=== PATIENT | female | born 1950 | race Caucasian/White ===

== ENCOUNTER 2017-10-21 08:53 | Day surgery (SDC) | payer MEDICARE, SELFPAY ==
[2017-10-16 13:06] VITALS: BMI 32.9
--- NOTE | 2017-10-16 14:29 | SUR.PREOP ---
DR COLIN LEGGETT-LEFT MESSAGE RE:NEED FOR CARDIAC CLEARANCE
[2017-10-21] VITALS (8 sets, daily range): BP systolic 118–171; BP diastolic 58–77; PULSE 64–70; RESP 16–18; TEMP 36.1; O2SAT 95–99
[2017-10-21 09:37] LABS: POC Glucose,Bedside 117 mg/dL
--- NOTE | 2017-10-21 10:49 | HMH.PROC ---
[facility] Procedure Note Procedure Note:: Colonoscopy Procedure Report: Colonoscopy with cold snare/snare cautery, submucosal injection (hetastarch), APC ablation and Endo Clip placement Endoscopist: Sterling Rodriguez II, MD Referring physician: Chanel mukherjee PA-C Date of Procedure: October 21, 2017 Equipment: Olympus 180 variable stiffness pediatric colonoscope Sedation: MAC sedation Indication: Mrs. Marcial is a 67-year-old female who is here for follow-up screening/surveillance colonoscopy. She did have a colonoscopy 11 years ago at [facility] (Dr. Vincent Gomez) which was normal. She reports no abdominal pain, weight loss, change in her bowel habits or rectal bleeding. She reports no family history of colon cancer. Procedure: Prior to the procedure, a history and physical exam was performed, and patient's medications and allergies were reviewed. The risks, benefits and alternatives of the sedation and procedure were discussed with the patient. All questions were answered and informed consent was obtained. The patient was brought to the procedure room. Patient identification and proposed procedure were verified by the physician and the nurse. The patient was placed in a left lateral decubitus position and the scope was passed under direct vision. Throughout the procedure, the patient's blood pressure, pulse, and oxygen saturations were monitored continuously. The colonoscopy was accomplished without difficulty. The patient tolerated the procedure well. Findings: On digital rectal examination there was normal rectal tone. There were no external hemorrhoids. The colonoscope was introduced through the anal canal to the rectum and advanced to the cecum. The ileocecal valve and appendiceal orifice were identified. The scope was advanced a short distance into the ileum which appeared grossly normal. The scope was then withdrawn into the colon. The cecum itself was normal. Within the proximal ascending colon was a laterally spreading granular elongated polyp along a haustral fold that extended approximately 30 mm in width and approximately 10 mm in depth. The base of this was injected with hetastarch submucosally to raise the polyp. The polyp was removed in piecemeal in 2 separate snares were utilized. Some of the polyp was so flat and was difficult to snare because of its very flat nature. This part was ablated using APC ablation. The remaining was removed via snare cautery. 2 endoclips were placed at the post polypectomy site. There was a second diminutive 5 mm polyp removed via cold snare polypectomy. The remaining ascending and transverse colon and mucosa were grossly normal. There were scattered diverticuli throughout the descending and sigmoid colon (LEFT colon). The rectum itself was normal. Upon retroflexion within the rectum there were grade 1 internal hemorrhoids. Impression: 1. Elongated laterally spreading granular ascending colon polyp (30 mm width/10 mm depth) status post mucosal resection with raising polyp/polypectomy 2. Diminutive ascending polyp 3. Left-sided diverticulosis 4. Grade 1 internal hemorrhoids Plan: I will follow up the polyp pathology and recommend repeat colonoscopy again in 1-2 years based upon the polyp histology. I would encourage fiber supplementation on a long-term daily maintenance basis.
--- NOTE | 2017-10-21 10:55 | P.PCN_ITS ---
[facility] Procedure Note Procedure Note:: Colonoscopy Procedure Report: Colonoscopy with cold snare/snare cautery, submucosal injection (hetastarch), APC ablation and Endo Clip placement Endoscopist: Sterling Rodriguez II, MD Referring physician: Chanel mukherjee PA-C Date of Procedure: October 21, 2017 Equipment: Olympus 180 variable stiffness pediatric colonoscope Sedation: MAC sedation Indication: Mrs. Marcial is a 67-year-old female who is here for follow-up screening /surveillance colonoscopy. She did have a colonoscopy 11 years ago at [facility] (Dr. Vincent Gomez) which was normal. She reports no abdominal pain, weight loss, change in her bowel habits or rectal bleeding. She reports no family history of colon cancer. Procedure: Prior to the procedure, a history and physical exam was performed, and patient' s medications and allergies were reviewed. The risks, benefits and alternatives of the sedation and procedure were discussed with the patient. All questions were answered and informed consent was obtained. The patient was brought to the procedure room. Patient identification and proposed procedure were verified by the physician and the nurse. The patient was placed in a left lateral decubitus position and the scope was passed under direct vision. Throughout the procedure, the patient's blood pressure, pulse, and oxygen saturations were monitored continuously. The colonoscopy was accomplished without difficulty. The patient tolerated the procedure well. Findings: On digital rectal examination there was normal rectal tone. There were no external hemorrhoids. The colonoscope was introduced through the anal canal to the rectum and advanced to the cecum. The ileocecal valve and appendiceal orifice were identified. The scope was advanced a short distance into the ileum which appeared grossly normal. The scope was then withdrawn into the colon. The cecum itself was normal. Within the proximal ascending colon was a laterally spreading granular elongated polyp along a haustral fold that extended approximately 30 mm in width and approximately 10 mm in depth. The base of this was injected with hetastarch submucosally to raise the polyp. The polyp was removed in piecemeal in 2 separate snares were utilized. Some of the polyp was so flat and was difficult to snare because of its very flat nature. This part was ablated using APC ablation. The remaining was removed via snare cautery. 2 endoclips were placed at the post polypectomy site. There was a second diminutive 5 mm polyp removed via cold snare polypectomy. The remaining ascending and transverse colon and mucosa were grossly normal. There were scattered diverticuli throughout the descending and sigmoid colon (LEFT colon). The rectum itself was normal. Upon retroflexion within the rectum there were grade 1 internal hemorrhoids. Impression: 1. Elongated laterally spreading granular ascending colon polyp (30 mm width/ 10 mm depth) status post mucosal resection with raising polyp/polypectomy 2. Diminutive ascending polyp 3. Left-sided diverticulosis 4. Grade 1 internal hemorrhoids Plan: I will follow up the polyp pathology and recommend repeat colonoscopy again in 1 -2 years based upon the polyp histology. I would encourage fiber supplementation on a long-term daily maintenance basis.
--- NOTE | 2017-10-21 11:27 | HMH.ANESCL ---
[facility] Anesthesia Checklist - Patient Identification Patient Identification: Arm Band - Structural Data Admitted From: Home Planned Operative Procedure/s: colonoscopy Consent for Planned Operative Procedure(s) Verified: Yes Verified Documents: Surgical Consent - NPO Status Verified Time NPO: 00:00 - Additional verifications Anesthesia Reactions: No - Airway Assessment C-Spine Mobility Assessed: Yes (MP2) TMJ Mobility Assessed: Yes Dentition: Good Dentition - Neurological Assessment Level of Consciousness: Awake, Alert - Anesthesia Plan Anesthesia Risk discussed: Yes Anesthesia Plan: Verified ASA Class: III Anesthesia Type: MAC [facility] Anesthesia HX I have reviewed the patient's past medical history: Yes Medical History: Reports:: Depression, Diabetes Mellitus Type 2 (NIDDM), Hyperlipidemia, Hypertension, Lung Disease (SLEEP APNEA USES CPAP, shortness of breath) Denies:: Diabetes Mellitus Type 1, Internal Pacemaker, Seizures Other Surgeries: No: Pacemaker Comment: thumb, uvula removed, bso
--- NOTE | 2017-10-21 12:39 | SUR.PHASEII ---
pt was noted in procedure to have a right bundle branch block. i called dr. brown office about this. pt shown to have RBBB in november of 2016 ekg, anes. made aware. dr. brown office faxed copy for our records
== END 2017-10-21 11:56 | disposition home or self-care (01) ==
LOC: OUTP 08:56
PROVIDERS: Family Provider Family Medicine; PCP Family Medicine; Visit Provider Internal Medicine Gastroenterology
PROC: 0DJD8ZZ Inspection of Lower Intestinal Tract, Via Natural or Artificial Opening Endoscopic (ICD-10-PCS; CPT 45378; principal; 2017-10-21 10:00)
DX: Z12.11 Encounter for screening for malignant neoplasm of colon (principal); K63.5 Polyp of colon; K57.32 Diverticulitis of large intestine without perforation or abscess without bleeding; K64.0 First degree hemorrhoids; Z79.899 Other long term (current) drug therapy
CPT/HCPCS: 45380; 45381; 45385; 82962; 88305; C2618

== ENCOUNTER 2021-01-08 12:40 | Emergency (ER) | payer MEDICARE, SELFPAY ==
--- NOTE | 2021-01-08 13:20 | HMH.EDUTC ---
[facility] Disposition Clinical Impression: Low back pain Qualifiers: Chronicity: acute Back pain laterality: right Sciatica presence: without sciatica Qualified Code(s): M54.5 - Low back pain Disposition: Home, Self-Care Condition on Discharge: Good Instructions: Low Back Pain, DI for Low Back Pain Additional Instructions: Go home and rest. It would be best if you rested tomorrow too. No heavy lifting. No twisting. Take the oral medications as directed. The muscle relaxer (cyclobenzaprine-flexeril) will make you drowsy, so don't drive or operate heavy machinery after taking it. Follow up with your regular doctor. GO TO THE ER FOR ANY WORSENING SYMPTOMS OR CONCERN, ESPECIALLY BOWEL OR BLADDER ISSUES, SADDLE AREA NUMBNESS, FEVER, ETC Prescriptions: Cyclobenzaprine HCl [Cyclobenzaprine 10mg Tab*] 10 mg PO BIDP PRN #30 tab PRN Reason: Muscle Spasm Transmission Status: Received by [facility] #[id number] predniSONE [Prednisone 20mg Tab] 20 mg PO BID 4 Days #8 tab Transmission Status: Received by [employer] #[id number] Referrals: Chanel Brandon [Primary Care Provider] - Time of Disposition: 13:29 Medical Decision Making - Medical Records Medical records reviewed: No: I reviewed the patient's medical records. - Nawaf Inquiry Pt receiving controlled substance: No Vital Signs: 01/08/21 13:23 01/08/21 13:31 Temperature 98.1 F 98.1 F Temperature Source Oral Oral Pulse Rate 70 Respiratory Rate 16 14 Blood Pressure 151/69 H 02 Sat by Pulse Oximetry 100 Oxygen Delivery Method Room Air - Lab Data Lab Results 01/08/21 13:13: Urine Color Yellow, Urine Appearance Clear, Urine pH 6.0, Ur Specific [place] 1.020, Urine Protein Trace, Urine Glucose (UA) Negative, Urine Ketones Negative, Urine Blood Negative, Urine Nitrate Negative, Urine Bilirubin Negative, Urine Urobilinogen 2, Ur Leukocyte Esterase Negative [facility] HPI - General Stated complaint: behind and hip pain, no accident Time Seen by Provider: 01/08/21 13:20 - History of Present Illness Provider Complaint: She c/o right lower back pain for the past 2 days. She denies any injury. She denies any urinary complaints. - Related Data Home Medications Medication Instructions Recorded Confirmed Fenofibrate Nanocrystallized 145 mg PO DAILY 10/16/17 11/02/19 [Tricor] Triamterene/Hydrochlorothiazid 1 each PO DAILY 10/16/17 11/02/19 [Triamterene-Hctz 75-50 mg Tab] Venlafaxine HCl [Effexor Xr] 150 mg PO DAILY 10/16/17 11/02/19 atenoloL [Atenolol 100mg Tab] 100 mg PO DAILY 10/16/17 11/02/19 estradioL [Estradiol] 0.5 mg PO DAILY 10/16/17 11/02/19 lisinopriL [Lisinopril 40mg Tablet] 40 mg PO DAILY 10/16/17 11/02/19 Lansoprazole [Prevacid] 15 mg PO DAILY 06/20/19 11/02/19 Montelukast Sodium [Singulair 10mg 10 mg PO HS 06/20/19 11/02/19 tablet] Previous Rx's Medication Instructions Recorded Phenazopyridine HCl [Pyridium 200 pow PO TID #6 tab 11/19/19 200mg Tablet] levoFLOXacin [Levaquin 500mg 500 mg PO DAILY #10 tab 11/19/19 tab] Cyclobenzaprine HCl 10 mg PO BIDP PRN #30 tab 01/08/21 [Cyclobenzaprine 10mg Tab*] predniSONE [Prednisone 20mg 20 mg PO BID 4 Days #8 tab 01/08/21 Tab] Allergies Allergy/AdvReac Type Severity Reaction Status Date / Time Penicillins [PENICILLINS] Allergy Intermediate I-HIVES Verified 11/02/19 09:53 [facility] History - Hepatitis A Screen Attestation statement:: This patient has been screened for Hepatitis A risk factors. I have reviewed the patient's past medical history: Yes Medical History: Reports:: Anxiety, Depression, Diabetes Mellitus Type 2, Hyperlipidemia, Hypertension, Lung Disease (sleep apnea) Denies:: Cancer, Diabetes Mellitus Type 1, Internal Pacemaker, MRSA, Seizures Comment: obesity, BRONSON uses CPAP Other Surgeries: No: Pacemaker Amputation: No Comment: Uvulectomy, L ovarian cystectomy/salpingectomy, L thumb, B CTR - Social History Smok
[2021-01-08 13:23] VITALS: RESP 16; TEMP 36.7; O2SAT 100; BMI 33.1
[2021-01-08 13:31] VITALS: BP 151/69; PULSE 70; RESP 14; TEMP 36.7; O2SAT 100
[2021-01-08 15:39] LABS: Apearance,Urine Clear (Clear); Color,Urine Yellow (Yellow)
[2021-01-08 15:40] LABS: Bilirubin,Urine Negative (Negative); Blood, Urine Negative (Negative); Glucose,Urine (UA) Negative (Negative); Ketones,Urine Negative (Negative); Protein,Urine Trace (Negative); UTC Leukocyte Esterase,Urine Negative (Negative); UTC Nitrate,Urine Negative (Negative); Urobilinogen,Urine 2 EU/dl (0.2)
== END 2021-01-08 13:32 | disposition home or self-care (01) ==
PROVIDERS: Emergency Provider Nurse Practitioner Family; PCP Physician Assistant
DX: M54.5 Low back pain (principal); F41.8 Other specified anxiety disorders; E11.9 Type 2 diabetes mellitus without complications; I10 Essential (primary) hypertension; E78.5 Hyperlipidemia, unspecified; Z79.899 Other long term (current) drug therapy
CPT/HCPCS: G0463; 81003; 99202

== ENCOUNTER 2021-07-08 12:56 | Emergency (ER) | payer MEDICARE, SELFPAY ==
--- NOTE | 2021-07-08 13:25 | HMH.EDUTC ---
[facility] [place] Clinical Impression: Gout Qualifiers: Gout site: foot Gout etiology: unspecified cause Chronicity: acute Laterality: left Qualified Code(s): M10.9 - Gout, unspecified Foot pain Qualifiers: Laterality: left Qualified Code(s): M79.672 - Pain in left foot Hordeolum Qualifiers: Hordeolum type: internum Laterality: left Eyelid: lower Qualified Code(s): H00.025 - Hordeolum internum left lower eyelid Disposition: Home, Self-Care Condition on Discharge: Good Instructions: DI for Gout, DI for Hordeolum Additional Instructions: Apply warm wet compresses to the affected area of your left eye 5 times per day for 10 minutes each time for the next week or so. Use the eye drops as directed. Follow up with your primary care doctor. Take the oral steroids (medrol dose pack) as directed. Don't start it until tomorrow since you had the shot here today. GO TO THE ER FOR ANY WORSENING SYMPTOMS OR CONCERNS, ESPECIALLY ANY FEVER, CHILLS, WORSENING FOOT PAIN, AND VISION CHANGES Prescriptions: Sulfacetamide Sodium [Bleph-10] 1 drp EYE-LEFT Q3H 7 Days #1 ml Transmission Status: Received by [employer] #[id number] methylPREDNISolone [Medrol] 4 mg PO DIRECTED 6 Days #21 packet Transmission Status: Received by [employer] #[id number] Referrals: Chanel Brandon [Primary Care Provider] - Time of Disposition: 13:58 Medical Decision Making - Medical Records Medical records reviewed: No: I reviewed the patient's medical records. - Nawaf Inquiry Pt receiving controlled substance: No Vital Signs: 07/08/21 13:32 07/08/21 13:54 Temperature 98.2 F 98.2 F Temperature Source Oral Pulse Rate 64 Pulse Rate [Left] 64 Respiratory Rate 18 19 Blood Pressure 175/78 H Blood Pressure [Right Arm] 175/78 H Blood Pressure Mean [Right Arm] 110 02 Sat by Pulse Oximetry 99 - Lab Data Lab results reviewed: Yes: I reviewed the patient's lab results. Orders (Tests/Meds): ED MEDICATIONS Discontinued Medications Generic Name Dose Route Start Last Admin Trade Name Freq PRN Reason Stop Dose Admin Methylprednisolone Sodium Succinate 125 mg 07/08/21 13:35 07/08/21 13:45 Methylprednisolone Sod Succ 125mg Vial IM 07/08/21 13:36 125 mg ONCE ONE Administration [facility] [place] - General Stated complaint: big left toe pain, left eye Time Seen by Provider: 07/08/21 13:31 - History of Present Illness Provider Complaint: She states that for the past 3 days she has had left foot pain. Her pain is located at the base of her big toe. She denies any other joint pain. She also has irritation of her left eye. This has been ongoing for the past 3 weeks. She denies eye pain and vision changes. She was treated for a sinus infection when her eye symptoms began. She took antibiotics for the sinus infection and it got better, but her eye has not got better. - Related Data Home Medications Medication Instructions Recorded Confirmed Fenofibrate Nanocrystallized 145 mg PO DAILY 10/16/17 11/02/19 [Tricor] Triamterene/Hydrochlorothiazid 1 each PO DAILY 10/16/17 11/02/19 [Triamterene-Hctz 75-50 mg Tab] Venlafaxine HCl [Effexor Xr] 150 mg PO DAILY 10/16/17 11/02/19 atenoloL [Atenolol 100mg Tab] 100 mg PO DAILY 10/16/17 11/02/19 estradioL [Estradiol] 0.5 mg PO DAILY 10/16/17 11/02/19 lisinopriL [Lisinopril 40mg Tablet] 40 mg PO DAILY 10/16/17 11/02/19 Lansoprazole [Prevacid] 15 mg PO DAILY 06/20/19 11/02/19 Montelukast Sodium [Singulair 10mg 10 mg PO HS 06/20/19 11/02/19 tablet] Previous Rx's Medication Instructions Recorded Phenazopyridine HCl [Pyridium 200 pow PO TID #6 tab 11/19/19 200mg Tablet] levoFLOXacin [Levaquin 500mg 500 mg PO DAILY #10 tab 11/19/19 tab] Cyclobenzaprine HCl 10 mg PO BIDP PRN #30 tab 01/08/21 [Cyclobenzaprine 10mg Tab*] predniSONE [Prednisone 20mg 20 mg PO BID 4 Days #8 tab 01/08/21 Tab] Sulfacetamide Sodium [Bleph-10] 1 drp EYE-LEF
[2021-07-08 13:32] VITALS: BP 175/78; PULSE 64; RESP 18; TEMP 36.8; O2SAT 99; BMI 33.5
[2021-07-08 13:54] VITALS: BP 175/78; PULSE 64; RESP 19; TEMP 36.8
== END 2021-07-08 14:10 | disposition home or self-care (01) ==
PROVIDERS: Emergency Provider Nurse Practitioner Family; PCP Physician Assistant
DX: M10.9 Gout, unspecified (principal); M79.672 Pain in left foot; H00.025 Hordeolum internum left lower eyelid
CPT/HCPCS: 96372; 99202; G0463

== ENCOUNTER 2021-12-10 14:21 | Emergency (ER) | payer MEDICARE, SELFPAY ==
[2021-12-10] VITALS (7 sets, daily range): BP systolic 163–187; BP diastolic 69–84; PULSE 60–72; RESP 16–20; TEMP 36.7–37.7; O2SAT 94–99; BMI 33.5
[2021-12-10 16:07] LABS: UTC Strep Screen (Rapid) Negative (Negative)
--- NOTE | 2021-12-10 16:12 | HMH.EDUTC ---
[facility] [place] Clinical Impression: Chest discomfort Disposition: Still a Patient Condition on Discharge: Good Referrals: Inocente Farah MD [Primary Care Provider] - Time of Disposition: 16:19 Medical Decision Making - Nawaf Inquiry Pt receiving controlled substance: No Nawaf was queried for this patient: No Vital Signs: 12/10/21 15:52 Temperature 98.1 F Temperature Source Oral Pulse Rate [Left] 64 Respiratory Rate 17 Blood Pressure [Right Arm] 187/73 H Blood Pressure Mean [Right Arm] 111 02 Sat by Pulse Oximetry 98 - Lab Data Lab Results 12/10/21 15:58: Strep Scn Rapid Clinic Negative Orders (Tests/Meds): ORDERS Category Date Time Status Strep Screen Confirmation Stat Micro 12/10/21 15:58 Received Medical Decision Narrative: Due to patient complaint of pressure like feeling in chest and feeling like something sitting on her without the complaint of chest congestion and blood pressure elevated recommended that patient be transferred to the ED for further treatment and evaluation and patient agreed Called ED spoke with Jennifer and patient was moved to room 7 [facility] HPI - General Stated complaint: congestion, cough, sinus pressure Time Seen by Provider: 12/10/21 16:12 Mode of Arrival: Ambulatory Source of Information: Patient Limitations: No Limitations Description of Symptoms (Recalled from Triage Doc. by RN): pt c/o nasal congestion and a sore throat. x4 days. pt states she feels pressure in her chest like something is sitting on it. HEENT Symptoms (Recalled from RN notes): Yes Resp Symptoms (Recalled from RN notes): Yes Skin Symptoms (Recalled from RN notes): No MS Symptoms (Recalled from RN notes): No Functional Status (Recalled from RN notes): wnl - History of Present Illness Provider Complaint: Patient states that for the last couple of days she has had scratchy throat and nasal congestion but she has been having pressure like feeling in her chest like something is sitting on the middle of her chest States that it is not radiating anywhere and not associated with cough or SOA Patient state that nothing has made it better or worse so today when she was still having the pressure she came in to get checked - Related Data Home Medications Medication Instructions Recorded Confirmed Fenofibrate Nanocrystallized 145 mg PO DAILY 10/16/17 11/02/19 [Tricor] Triamterene/Hydrochlorothiazid 1 each PO DAILY 10/16/17 11/02/19 [Triamterene-Hctz 75-50 mg Tab] Venlafaxine HCl [Effexor Xr] 150 mg PO DAILY 10/16/17 11/02/19 atenoloL [Atenolol 100mg Tab] 100 mg PO DAILY 10/16/17 11/02/19 estradioL [Estradiol] 0.5 mg PO DAILY 10/16/17 11/02/19 lisinopriL [Lisinopril 40mg Tablet] 40 mg PO DAILY 10/16/17 11/02/19 Lansoprazole [Prevacid] 15 mg PO DAILY 06/20/19 11/02/19 Montelukast Sodium [Singulair 10mg 10 mg PO HS 06/20/19 11/02/19 tablet] Previous Rx's Medication Instructions Recorded Phenazopyridine HCl [Pyridium 200 pow PO TID #6 tab 11/19/19 200mg Tablet] levoFLOXacin [Levaquin 500mg 500 mg PO DAILY #10 tab 11/19/19 tab] Cyclobenzaprine HCl 10 mg PO BIDP PRN #30 tab 01/08/21 [Cyclobenzaprine 10mg Tab*] predniSONE [Prednisone 20mg 20 mg PO BID 4 Days #8 tab 01/08/21 Tab] Sulfacetamide Sodium [Bleph-10] 1 drp EYE-LEFT Q3H 7 Days #1 ml 07/08/21 methylPREDNISolone [Medrol] 4 mg PO DIRECTED 6 Days #21 07/08/21 packet predniSONE [Deltasone 10mg tablet] 10 mg PO DAILY 9 Days #21 tab 07/13/21 Allergies Allergy/AdvReac Type Severity Reaction Status Date / Time Penicillins [PENICILLINS] Allergy Intermediate I-HIVES Verified 11/02/19 09:53 - Worker's Comp Is this a Worker's Comp case?: No [facility] History - Hepatitis A Screen Drug use history?: No High risk sexual behaviors?: No History of sexually transmitted infection?: No Currently employed?: No Childcare worker?: No Do you have indoor plumbing?: Yes Do you have electricity?: Yes A
--- NOTE | 2021-12-10 16:20 | PC.NURSE ---
EKG done and given to Dr. Varner.
--- NOTE | 2021-12-10 16:28 | XR_ITS ---
PROCEDURE INFORMATION: Exam: XR Chest Exam date and time: 12/10/2021 4:28 PM Age: 71 years old Clinical indication: Cough TECHNIQUE: Imaging protocol: XR of the chest. Views: 2 views. COMPARISON: CR XR RIBS RT MIN 3V W CXR1V 11/26/2019 7:19 PM FINDINGS: Lungs: No region of consolidation. Pleural spaces: No region of pleural effusion. Heart/Mediastinum: Unremarkable. No cardiomegaly. Bones/joints: Unremarkable. IMPRESSION: No evidence of acute cardiopulmonary disease.
--- NOTE | 2021-12-10 16:28 | ECG_ITS ---
APPROVED REPORT Exam: Resting ECG HR:66 bpm ECG Measurements Heart Rate 66 AXES WV 167 P 20 QRSd 130 QRS 5 QT 390 T 27 QTc 404 Conclusion ELECTRONIC VENTRICULAR PACEMAKER ABNORMAL RHYTHM ECG UNCONFIRMED REPORT Electronically signed by : Rolf Tilley MD 12/11/2021 13:42:40
--- NOTE | 2021-12-10 16:36 | PC.NURSE ---
pt to radiology.
[2021-12-10 16:37] LABS: Basophils # 0.1 K/mm3 (0-0.2); Basophils % 1.1 % (0.1-2.0); Eosinophils # 0.2 K/mm3 (0.0-0.4); Eosinophils % 1.8 % (0.1-12.0); Hematocrit 42.5 % (37.0-47.0); Hemoglobin 13.7 g/dL (12.2-16.2); Lymphocytes # 3.3 K/mm3 (0.7-4.5); Lymphocytes % 38.9 % (10-50); Mean Corpuscular HGB Conc 32.2 g/dL (31.8-35.4); Mean Corpuscular Hemoglobin 31.7 pg (27.0-31.2); Mean Corpuscular Volume 98.3 fl (81-99); Mean Platelet Volume 8.4 fl (7.4-10.4); Monocytes # 0.4 K/mm3 (0.1-1.0); Monocytes % 4.6 % (1.7-9.3); Neutrophils # 4.5 K/mm3 (1.8-7.8); Neutrophils % 53.5 % (37.0-80.0); Platelet Count 269 K/mm3 (142-424); Red Blood Count 4.32 M/mm3 (4.20-5.40); Red Cell Distribution Width 12.9 % (11.5-17.5); White Blood Count 8.4 K/mm3 (4.8-10.8)
[2021-12-10 16:39] LABS: Chloride 104 mmol/L (98-107); Sodium 138 mmol/L (136-145)
--- NOTE | 2021-12-10 16:41 | PC.NURSE ---
pt back from radiology and hooked back up to vital signs. nothing needed at this time. call light within reach.
[2021-12-10 16:42] LABS: Blood Urea Nitrogen 26 mg/dl (7-17); Creatinine Clearance Estimated 66 mL/min (50-200); Estimated Glomerular Filt Rate 49 ml/min (>60); GFR (African American) 59 ML/MIN (>60)
[2021-12-10 16:43] LABS: Calcium 9.3 mg/dl (8.4-10.2); Carbon Dioxide 27 mmol/L (22.0-30.0); Glucose 132 mg/dl (74-100)
--- NOTE | 2021-12-10 16:47 | PC.NURSE ---
Covid Swab obtained and sent to the lab
[2021-12-10 16:54] LABS: Coronavirus 19, PCR Not Detected (NotDetected); Influenza A, PCR Not Detected (NotDetected); Influenza B, PCR Not Detected (NotDetected)
[2021-12-10 16:55] LABS: Troponin I < 0.01 ng/ml (0.00-0.034)
--- NOTE | 2021-12-10 17:39 | CT_ITS ---
PROCEDURE INFORMATION: Exam: CTA Chest With Contrast Exam date and time: 12/10/2021 5:39 PM Age: 71 years old Clinical indication: Shortness of breath and other: Chest pain and pressure; Additional info: Chest pressure TECHNIQUE: Imaging protocol: Computed tomographic angiography of the chest with contrast. 3D rendering (Not supervised by radiologist): MIP and/or 3D reconstructed images were created by the technologist. Radiation optimization: All CT scans at this facility use at least one of these dose optimization techniques: automated exposure control; mA and/or kV adjustment per patient size (includes targeted exams where dose is matched to clinical indication); or iterative reconstruction. Contrast material: ISOVUE; Contrast volume: 75 ml; Contrast route: INTRAVENOUS (IV); COMPARISON: CR XR CHEST 2V 12/10/2021 4:30 PM FINDINGS: Pulmonary arteries: No evidence of pulmonary embolus. Aorta: Unremarkable. No aortic aneurysm. No aortic dissection. Lungs: Calcified granulomas at the lung bases. Pleural spaces: No pleural effusions. No regions of consolidation. Heart: Unremarkable. No cardiomegaly. No pericardial effusion. Lymph nodes: Unremarkable. No enlarged lymph nodes. Liver: Diffuse hepatic steatosis. Evidence of prior splenic granulomatous disease. Mild splenic enlargement. Kidneys and ureters: Mild lobulation of both kidneys greatest on the left. Findings incompletely visualized. Bones/joints: Unremarkable. No acute fracture. Soft tissues: 10 x 7 mm region of nodularity in the right breast. Correlate with mammography. IMPRESSION: 1. No evidence of pulmonary embolus. 2. Evidence of prior granulomatous disease . 3. Hepatic steatosis. 4. Mild splenomegaly. 5. 10 x 7 mm region of nodularity in the right breast. Correlate with mammography.
--- NOTE | 2021-12-10 17:54 | PC.NURSE ---
pt to CT scan at this time.
--- NOTE | 2021-12-10 20:03 | HMH.EDGENADL ---
ED Disposition Clinical Impression: Chest discomfort Disposition: Home, Self-Care Condition on Discharge: Good Referrals: Inocente Farah MD [Primary Care Provider] - - Critical Care Critical Care Time: No Attestation: On 12/10/21, the high probability of a clinically significant, sudden or life threatening deterioration of the following system(s) required my full and direct attention, intervention and personal management. The time I documented below is in addition to time spent performing reported procedures but includes the following listed in this critical care notation. Medical Decision Making - Nawaf Inquiry Pt receiving controlled substance: No Vital Signs: 12/10/21 15:52 12/10/21 16:22 12/10/21 16:35 Temperature 98.1 F 100 F H Temperature Source Oral Oral Pulse Rate Pulse Rate [Left] 64 65 62 Respiratory Rate 17 20 Blood Pressure Blood Pressure [Right Arm] 187/73 H 174/71 H Blood Pressure Mean [Right Arm] 111 105 02 Sat by Pulse Oximetry 98 98 96 Oxygen Delivery Method Room Air Room Air 12/10/21 17:26 12/10/21 18:27 12/10/21 18:28 Temperature Temperature Source Pulse Rate Pulse Rate [Left] 64 72 61 Respiratory Rate Blood Pressure Blood Pressure [Right Arm] 166/69 H 163/71 H Blood Pressure Mean [Right Arm] 101 101 02 Sat by Pulse Oximetry 99 94 L 95 Oxygen Delivery Method Room Air Room Air Room Air 12/10/21 20:25 Temperature 98.5 F Temperature Source Oral Pulse Rate 60 Pulse Rate [Left] Respiratory Rate 16 Blood Pressure 176/84 H Blood Pressure [Right Arm] Blood Pressure Mean [Right Arm] 02 Sat by Pulse Oximetry Oxygen Delivery Method Room Air - Lab Data Lab Results 12/10/21 15:58: Strep Scn Rapid Clinic Negative 12/10/21 16:25: WBC 8.4, RBC 4.32, Hgb 13.7, Hct 42.5, MCV 98.3, MCH 31.7 H, MCHC 32.2, RDW 12.9, Plt Count 269, MPV 8.4, Neut % (Auto) 53.5, Lymph % (Auto) 38.9, [place] % (Auto) 4.6, Eos % (Auto) 1.8, Baso % (Auto) 1.1, Neut # (Auto) 4.5, Lymph # (Auto) 3.3, [place] # (Auto) 0.4, Eos # (Auto) 0.2, Baso # (Auto) 0.1 12/10/21 16:25: Sodium 138, Potassium 5.0, Chloride 104, Carbon Dioxide 27, Anion Gap 12.0, BUN 26 H, Creatinine 1.10 H, Estimated Creat Clear 66, Estimated GFR 49 L, Est GFR ( Amer) 59, Glucose 132 H, Calcium 9.3, Troponin I < 0.01 12/10/21 16:46: SARS-CoV-2 (PCR) Not detected, Influenza A Untype (PCR) Not detected, Influenza Type B (PCR) Not detected Result diagrams: 12/10/21 16:25 12/10/21 16:25 Orders (Tests/Meds): ED MEDICATIONS Discontinued Medications Generic Name Dose Route Start Last Admin Trade Name Freq PRN Reason Stop Dose Admin Iopamidol 75 ml 12/10/21 17:57 12/10/21 17:58 Iopamidol-370 (76%);100ml Bottle IV 12/10/21 17:58 75 ml ONCE ONE Administration Sodium Chloride 50 ml 12/10/21 17:57 12/10/21 17:58 0.9 % Sodium Chloride 50 Ml Vial IV 12/10/21 17:58 50 ml ONCE ONE Administration Sodium Chloride 10 ml 12/10/21 17:57 12/10/21 17:58 Sodium Chloride 0.9% 10ml Syr (Rad Only) IV 12/10/21 17:58 10 ml ONCE ONE Administration ORDERS Category Date Time Status CT angio chest PE protocol Stat Cat Scan 12/10/21 17:39 Taken Chest XR 2 view (NOT portable) [XR chest 2V] Stat Exams 12/10/21 16:28 Taken Strep Screen Confirmation Stat Micro 12/10/21 15:58 Received Medical Decision Narrative: DDx includes but not limited to ACS, PE, arrhythmia, viral syndrome, chest congestion, pneumonia. Less likely acute aortic dissection or aneurysm since without neurological findings/symptoms, well appearing, nonradiation of pain, no hx of aortic disease, non smoker. HDS, NAD, well appearing. On room air. EKG shows sinus rhythm. Trop wnl. CT PE without signs of PE. With right breast nodule which patient states she already received mammogram recently showing same nodule and she is to follow up in 6 months after initial mammogram for repeat. Also with signs of hepatic steatosis. L
== END 2021-12-10 20:27 | disposition home or self-care (01) ==
LOC: UTC 14:37 → ER 16:15
PROVIDERS: Nurse Practitioner; Emergency Provider Student in an Organized Health Care Education/Training Program; PCP Emergency Medicine
DX: R07.89 Other chest pain (principal); F41.8 Other specified anxiety disorders; R11.2 Nausea with vomiting, unspecified; R05.1 Acute cough
CPT/HCPCS: 71046; 71275; 80048; 84484; 85025; 87880; 93005; 96365; 99284; C9803; Q9967; U0003; U0005

== ENCOUNTER → 2022-03-19 09:49 | Outpatient (CLI) | payer MEDICARE, SELFPAY ==
[2022-03-19 10:11] LABS: Microscopic, Urine URINE MICROSCOPIC (MICROSCOPIC)
[2022-03-19 10:39] LABS: Appearance,Urine CLEAR (Clear); Bilirubin,Urine Negative (Negative); Blood, Urine Negative (Negative); Color,Urine YELLOW (Yellow); Glucose,Urine (UA) Negative (Negative); Ketones,Urine Negative (Negative); Leukocyte Esterase,Urine Negative (Negative); Nitrate,Urine Negative (Negative); PH,Urine 5.5 (5.0-8.5); Protein,Urine Negative (Negative); Urobilinogen,Urine 0.2 EU/dl (0.2)
[2022-03-19 10:52] LABS: Creatinine,Urine Random 22 mg/dL (Not Estab.)
[2022-03-19 12:07] LABS: Anion Gap 12.5 mEq/L (5-15); Blood Urea Nitrogen 43 mg/dl (7-17); Calcium 10.4 mg/dl (8.4-10.2); Carbon Dioxide 26 mmol/L (22.0-30.0); Chloride 103 mmol/L (98-107); Estimated Glomerular Filt Rate 34 ml/min (>60); GFR (African American) 42 ML/MIN (>60); Glucose 222 mg/dl (74-100); Magnesium 1.2 mg/dl (1.6-2.3); Potassium 5.5 mmoL/L (3.5-5.1); Sodium 136 mmol/L (136-145)
[2022-03-19 12:08] LABS: Albumin Level 4.3 g/dl (3.5-5.0); Phosphorous 4.8 mg/dl (2.5-4.5); Uric Acid 10.4 mg/dl (2.5-6.2)
[2022-03-19 12:16] LABS: NT Pro Brain Natriuretic Pep. 103 pg/mL (0-125)
[2022-03-19 12:19] LABS: Intact Parathyroid Hormone 25.2 pg/mL (7.5-53.5)
[2022-03-19 16:00] LABS: Creatine Kinase 143 U/L (30-135)
[2022-03-20 09:30] LABS: Complement C3 185 mg/dL (82-167)
[2022-03-20 13:30] LABS: Anti-DNA (DS) Ab Qn 1 IU/mL (0-9)
[2022-03-21 10:12] LABS: Antinuclear Antibodies, IFA Negative (.)
== END ==
PROVIDERS: PCP Emergency Medicine; Referring Provider Emergency Medicine; Visit Provider Internal Medicine Nephrology
DX: I50.22 Chronic systolic (congestive) heart failure (principal); I10 Essential (primary) hypertension; E55.9 Vitamin D deficiency, unspecified; N17.9 Acute kidney failure, unspecified; M10.9 Gout, unspecified
CPT/HCPCS: 36415; 80048; 81001; 82040; 82306; 82550; 82570; 83735; 83880; 83970; 84100; 84155; 84550; 86038; 86161; 86225

== ENCOUNTER 2023-06-26 16:17 | Emergency (ER) | payer MEDICARE, SELFPAY ==
[2023-06-26 16:30] VITALS: BP 192/77; PULSE 72; RESP 18; TEMP 36.9; O2SAT 97; BMI 35.0
--- NOTE | 2023-06-26 16:42 | EXP.UTC ---
Discharge Plan Disposition Patient Disposition: Home, Self-Care Condition: Good Prescriptions Prescriptions: New benzonatate 100 mg capsule 100 mg PO BID PRN (Reason: cough) Qty: 10 0RF No Action atenolol 100 MG tablet 100 mg PO DAILY venlafaxine [Effexor XR] 150 MG capsule,extended release 24hr 150 mg PO DAILY estradiol 0.5 MG tablet 0.5 mg PO DAILY triamterene-hydrochlorothiazid 1 EACH tablet 1 ea PO DAILY lisinopril 40 MG tablet 40 mg PO DAILY fenofibrate nanocrystallized [Tricor] 145 MG tablet 145 mg PO DAILY lansoprazole 15 MG capsule,delayed release(DR/EC) 15 mg PO DAILY montelukast 10 MG tablet 10 mg PO HS cyclobenzaprine 10 MG tablet 10 mg PO BIDP PRN (Reason: Muscle Spasm) Qty: 30 0RF sulfacetamide sodium 5 ML drops 1 drp EYE-LEFT Q3H 7 Days Qty: 1 0RF furosemide 40 mg tablet 40 mg PO DAILY Patient Comments: TAKE 1 TABLET BY MOUTH DAILY amlodipine 5 mg tablet 5 mg PO DAILY Patient Comments: TAKE 1 TABLET BY MOUTH DAILY allopurinol 100 mg tablet 200 mg PO DAILY Patient Comments: TAKE 2 TABLETS BY MOUTH DAILY losartan 100 mg tablet 100 mg PO DAILY Patient Comments: TAKE 1 TABLET BY MOUTH DAILY Myrbetriq 25 mg tablet extended release 24 hr 25 mg PO DAILY Referrals Follow up/Referrals: Inocente Farah MD [Primary Care Provider] - See instructions Activity Restrictions/Add. Instructions Additional Instructions/Restrictions: covid swab was sent to lab, call tomorrow for results. self isolate until test results are known to be negative No sign of a bacterial infection. Likely viral. Viruses can take 7-14 days to run their course. Nasal saline and bulb syringe or nose Radha to remove nasal drainage to help with nasal congestion. Hard to eat, drink, sleep with nasal congestion so important to keep this cleaned out. Monitor temp. Tylenol or Motrin as needed for pain or fever Encourage fluids, water, Gatorade, Powerade, Pedialyte if infant/toddler/child Warm salt water gargles Warm fluids Sore throat lozenges Sleep elevated Humidifier/vaporizer Follow-up immediately for new or worsening symptoms or no noticeable improvement over the next 48-72 hours. Clinical Impressions Clinical Impression: Upper respiratory infection, viral Instructions Patient Instructions: DI for Viral Upper Respiratory Infection -- Adult, Cough Discharge ED Provider: Mike ([facility] [place] General Stated complaint: drainage, bilateral ear pain Mode of Arrival: Ambulatory Source of Information: Patient Limitations: No Limitations Time Seen by Provider: 06/26/23 16:43 Description of Symptoms (Recalled from Triage Doc. by RN): nasal and chest congestion, and feels hoarse HEENT Symptoms (Recalled from RN notes): Yes Resp Symptoms (Recalled from RN notes): No Skin Symptoms (Recalled from RN notes): No MS Symptoms (Recalled from RN notes): No Functional Status (Recalled from RN notes): n/a History of Present Illness Provider Complaint: 72 yr old female presents with c/o nasal and chest congestion, and feels hoarse. pt states she was exposed on saturday to someone that tested positive for covid. pt states she received her covid and flu vaccines yesterday Related Data Home Medications Medication Instructions Recorded Confirmed atenolol 100 mg tablet 100 mg PO DAILY BLOOD PRESSURE 10/16/17 11/02/19 estradiol 0.5 mg tablet 0.5 mg PO DAILY HRT 10/16/17 11/02/19 fenofibrate nanocrystallized 145 145 mg PO DAILY Cholesterol 10/16/17 06/26/23 mg tablet (Tricor) lisinopril 40 mg tablet 40 mg PO DAILY BLOOD PRESSURE 10/16/17 11/02/19 triamterene 75 1 ea PO DAILY BP/FLUID 10/16/17 11/02/19 mg-hydrochlorothiazide 50 mg tablet venlafaxine 150 mg 150 mg PO DAILY DEPRESSION/ANXIETY 10/16/17 06/26/23 capsule,extended release 24 hr (Effexor XR) lansoprazole 15 mg capsule,delayed 15 mg PO DAILY LISA
[2023-06-26 17:01] VITALS: BP 192/77; PULSE 72; RESP 18; TEMP 36.9; O2SAT 97
== END 2023-06-26 17:01 | disposition home or self-care (01) ==
PROVIDERS: Emergency Provider Nurse Practitioner Family; PCP Emergency Medicine
DX: U07.1 COVID-19 (principal)
CPT/HCPCS: 87635; 99212; 99214; G0463